=== PATIENT | male | born 1965 | race Two or more races ===

== ENCOUNTER 2020-03-29 04:38 | Emergency (ER) | payer OTHER ==
[~2020-03-29] VITALS: Ht 182.9 cm; Wt 92.0 kg
[2020-03-29] MEDS ORDERED: KETOROLAC 30MG/ML VIAL IV STA (06:09)
[2020-03-29] MEDS ORDERED: SODIUM CHLORIDE 0.9% 1,000 ML IV ONE (06:09)
[2020-03-29 06:19] LABS: CHLORIDE 106 mEq/L (98-107); HEMATOCRIT. 43.5 % (42.0-52.0); HEMOGLOBIN. 14.8 g/dL (14.0-18.0); MEAN CORPUSCULAR HEMOGLOBIN 31.5 pg (28.0-32.0); MEAN CORPUSCULAR VOLUME 92.4 fL (80.0-94.0); MEAN PLATELET VOLUME 9.2 fl (7.4-10.4); PLATELET 232 x1000/uL (130-400); RED BLOOD CELL COUNT 4.71 mill/uL (4.7-6.1); RED CELL DISTRIBUTION WIDTH 13.7 % (11.6-14.6)
[2020-03-29 06:30] LABS: CLARITY URINE CLEAR (CLEAR); COLOR URINE YELLOW (YELLOW); KETONES URINE NEGATIVE (NEGATIVE); LEUKOCYTE ESTERASE URINE NEGATIVE (NEGATIVE); NITRITE URINE NEGATIVE (NEGATIVE); OCCULT BLOOD URINE NEGATIVE (NEGATIVE); PH URINE 7.5 (4.5-8.0); PROTEIN URINE NEGATIVE (NEGATIVE); SPECIFIC GRAVITY URINE 1.022 (1.005-1.030); UROBILINOGEN URINE 0.2 E.U./dL (0.2-1.0)
[2020-03-29 06:31] LABS: PROTHROMBIN TIME 10.7 sec (9.6-11.0)
[2020-03-29 06:38] LABS: *BARBITURATES SCREEN URINE NEGATIVE (NEGATIVE)
[2020-03-29 06:39] LABS: *AMPHETAMINES SCREEN URINE NEGATIVE (NEGATIVE); *BENZODIAZEPINES SCREEN URINE NEGATIVE (NEGATIVE); *COCAINE SCREEN URINE NEGATIVE (NEGATIVE); METHADONE URINE SCREEN NEGATIVE (NEGATIVE); OPIATES URINE SCREEN NEGATIVE (NEGATIVE)
[2020-03-29 06:40] LABS: CANNABINOID URINE SCREEN NEGATIVE (NEGATIVE); PHENCYCLIDINE URINE SCREEN NEGATIVE (NEGATIVE)
[2020-03-29 07:14] LABS: PLATELET ESTIMATE NORMAL
[2020-03-29] MEDS ORDERED: MORPHINE SULFATE 4 MG/ML CPJ (NOT FOR IM USE) IV ONE (08:00)
[2020-03-29] MEDS ORDERED: ONDANSETRON HCL 4MG/2ML INJ IV ONE (08:00)
[2020-03-29 09:26] VITALS: BP 125/68
== END 2020-03-29 09:28 | disposition home or self-care (01) ==
LOC: ER 04:38
DX: N20.0 Calculus of kidney (principal); N43.3 Hydrocele, unspecified; L72.8 Other follicular cysts of the skin and subcutaneous tissue; R73.9 Hyperglycemia, unspecified
CPT/HCPCS: 36415; 74176; 76870; 80053; 80305; 81003; 83690; 85025; 85610; 93976; 96374; 96375; 99285; J1885; J2270; J2405; J7030

== ENCOUNTER 2021-10-22 17:27 | Emergency (ER) | payer OTHER ==
[~2021-10-22] VITALS: Ht 182.9 cm; Wt 100.0 kg
[2021-10-22] MEDS ORDERED: IBUPROFEN 600MG TABLET PO ONE (19:15)
[2021-10-22] MEDS ORDERED: CEPHALEXIN 250MG CAPSULE PO ONE (19:15)
[2021-10-22] MEDS ORDERED: TETANUS, DIPHTHERIA, PERTUSSIS VAC/PF 0.5ML (>10YR OLD) IM ONE (19:15)
[2021-10-22] MEDS ORDERED: NAP5EC MT (20:11)
[2021-10-22] MEDS ORDERED: CEPH500C2 MT (20:11)
[2021-10-22 21:53] VITALS: BP 145/88
== END 2021-10-22 21:54 | disposition home or self-care (01) ==
LOC: ER 17:27
DX: S61.442A Puncture wound with foreign body of left hand, initial encounter (principal); B96.89 Other specified bacterial agents as the cause of diseases classified elsewhere; F17.210 Nicotine dependence, cigarettes, uncomplicated; X58.XXXA Exposure to other specified factors, initial encounter
CPT/HCPCS: 73130; 90471; 90715; 99283